=== PATIENT | female | born 1970 | race American Indian/Alaskan Native ===

== ENCOUNTER 2017-04-19 11:52 | Emergency (ER) | payer SELFPAY ==
[2017-04-19 12:51] VITALS: BP 111/76
[2017-04-19] MEDS ORDERED: ZOFRAN ODT PO ONE (14:48)
--- NOTE | 2017-04-19 14:48 | Emergency Department Report ---
ED Headache HPI - General Chief Complaint: Headache Stated Complaint: HEADACHE Time Seen by Provider: 04/19/17 14:01 - History of Present Illness Initial Comments: Patient is a 46-year-old who presents to ED complaining of right-sided throbbing and stabbing headache 1 week. Patient states about a week ago she was moving some objects and was coming down the stairs when she slipped and fell and hit the right side of her head. Patient states she had no loss of consciousness or any significant injuries to her knowledge. Patient states she has then she has had this right-sided throbbing headache with no relief. Patient states she's also had some nausea, vomiting and feelings of fatigue. She admits mild blurred vision in the right side. X-ray she denies dizziness/ fever/chest pain/shortness of breath. Allergies/Adverse Reactions: Allergies No Known Allergies Allergy (Unverified 04/19/17 12:51) Home Medications: Ambulatory Orders Amoxicillin/K Clav Tab [Augmentin 875 mg] 1 tab PO Q12HR #14 tab 04/19/17 Ibuprofen [Motrin] 600 mg PO Q8H PRN #30 tablet 04/19/17 Ondansetron [Zofran ODT TAB] 8 mg PO TID #20 tab.rapdis 04/19/17 ED Review of Systems ROS: Stated complaint: HEADACHE Other details as noted in HPI Constitutional: denies: chills, fever Eyes: denies: eye pain, eye discharge, vision change ENT: denies: ear pain, throat pain Respiratory: denies: cough, shortness of breath, wheezing Cardiovascular: denies: chest pain, palpitations Endocrine: no symptoms reported Gastrointestinal: denies: abdominal pain, nausea, diarrhea Genitourinary: denies: urgency, dysuria, discharge Musculoskeletal: denies: back pain, joint swelling, arthralgia Skin: denies: rash, lesions Neurological: denies: headache, weakness, paresthesias Psychiatric: denies: anxiety, depression Hematological/Lymphatic: denies: easy bleeding, easy bruising ED Past Medical Hx - Past Medical History Previous Medical History?: No Additional medical history: anemia, anxiety, herpes - Social History Smoking Status: Never Smoker - Medications Home Medications: Home Medications Medication Instructions Recorded Confirmed Last Taken Type Amoxicillin/K Clav Tab [Augmentin 1 tab PO Q12HR #14 tab 04/19/17 Unknown Rx 875 mg] Ibuprofen [Motrin] 600 mg PO Q8H PRN #30 tablet 04/19/17 Unknown Rx Ondansetron [Zofran ODT TAB] 8 mg PO TID #20 tab.rapdis 04/19/17 Unknown Rx ED Physical Exam - General Limitations: No Limitations General appearance: alert, in no apparent distress - Head Head exam: Present: atraumatic, normocephalic - Eye Eye exam: Present: normal appearance, PERRL, EOMI - ENT ENT exam: Present: normal exam, mucous membranes moist - Neck Neck exam: Present: normal inspection, full ROM. Absent: tenderness, lymphadenopathy - Respiratory Respiratory exam: Present: normal lung sounds bilaterally. Absent: respiratory distress, wheezes, rales, rhonchi - Cardiovascular Cardiovascular Exam: Present: regular rate, normal rhythm. Absent: systolic murmur, diastolic murmur, rubs, gallop - GI/Abdominal GI/Abdominal exam: Present: soft, normal bowel sounds - Extremities Exam Extremities exam: Present: normal inspection - Back Exam Back exam: Present: normal inspection - Neurological Exam Neurological exam: Present: alert, oriented X3, CN II-XII intact, normal gait - Expanded Neurological Exam Expanded Patient oriented to: Present: person, place, time Speech: Present: fluid speech Cranial nerves: EOM's Intact: Normal, Facial Sensation: Normal Cerebellar function: Finger to Nose: Normal Sensory exam: Upper Extremity Light Touch: Normal, Lower Extremity Temperature: Normal Motor strength exam: RUE: 5, LUE: 5, RLE: 5, LLE: 5 DTR: knee (R): 2+, knee (L): 2+ Best Eye Response ([place]): (4) open spontaneously Best Motor Response (Abhishek): (6) obeys commands Best Verbal Response ([place]): (5) oriented [place] Total: 15 - Psychiatric Psychiatric exam: Present: normal affect, normal mood - Skin Skin exam: Present: warm, dry, intact, normal color. Absent: rash ED Course Vital Signs 04/19/17 04/19/17 04/19/17 12:43 16:37 16:40 Temperature 98 F Pulse Rate 77 Respiratory 16 18 18 Rate Blood Pressure 111/76 Blood Pressure 111/76 [Left] O2 Sat by Pulse 100 98 Oximetry ED Medical Decision Making - Radiology Data Radiology results: report reviewed, image reviewed istory: Fall hit head. Nausea vomiting. Findings: Ventricles are normal in size and midline in location. No evidence of acute ischemia, hemorrhage or mass. No extra axial fluid collection. Normal brainstem and cerebellum. Retention cyst or polyp measuring 1.3 cm in diameter right maxillary sinus medial wall. Impression: No acute intracranial abnormality. Retention cyst or polyp right maxillary sinus. Transcribed By: PTP Dictated By: ROHITH ACEVEDO MD Electronically Authenticated By: ROHITH ACEVEDO MD Signed Date/Time: 04/19/17 2710 - Medical Decision Making 26-year-old female presents with maxillary sinus cyst ED course: She received Motrin for pain. And Zofran ODT for nausea. CT of the head obtained. CT of the head shows above Discussed findings with patient. Sinus suggestive of sinusitis or sinus infection. Discussed with patient to take medications as prescribed. Discussed with patient to follow up with family care physician or ENT as referred Vital signs are normal patient is in no acute distress she reports feeling better after being medicated/ She had no neurological deficit Critical care attestation.: If time is entered above; I have spent that time in minutes in the direct care of this critically ill patient, excluding procedure time. ED Disposition Clinical Impression: Cyst of maxillary sinus, Fall (on) (from) other stairs and steps, initial encounter Sinusitis, acute maxillary Qualifiers: Recurrence: non-recurrent Qualified Code(s): J01.00 - Acute maxillary sinusitis , unspecified Disposition: DC- TO HOME OR SELFCARE Is pt being admited?: No Does the pt Need Aspirin: No Condition: Stable Instructions: Sinusitis (ED), Acute Headache (ED) Prescriptions: Amoxicillin/K Clav Tab [Augmentin 875 mg] 1 tab PO Q12HR #14 tab Ibuprofen [Motrin] 600 mg PO Q8H PRN #30 tablet PRN Reason: Pain Ondansetron [Zofran ODT TAB] 8 mg PO TID #20 tab.rapdis Referrals: PRIMARY CARE, [Primary Care Provider] - 3-5 Days HIRO NORTH MD [Staff Physician] - 3-5 Days DANIE RAMSAY MD [Staff Physician] - 3-5 Days Forms: Accompanied Note, Work/School Release Form(ED) Time of Disposition: 16:09
--- NOTE | 2017-04-19 15:44 | Cat Scan Report ---
CT scan of head without IV contrast: History: Fall hit head. Nausea vomiting. Findings: Ventricles are normal in size and midline in location. No evidence of acute ischemia, hemorrhage or mass. No extra axial fluid collection. Normal brainstem and cerebellum. Retention cyst or polyp measuring 1.3 cm in diameter right maxillary sinus medial wall. Impression: No acute intracranial abnormality. Retention cyst or polyp right maxillary sinus.
[2017-04-19] MEDS ORDERED: MOTRIN PO ONE (16:20)
[2017-04-19] MEDS ORDERED: MOTRIN ONE (16:23)
== END 2017-04-19 16:43 | disposition home or self-care (01) ==
LOC: ED 11:52
DX: J01.00 Acute maxillary sinusitis, unspecified (principal); F41.9 Anxiety disorder, unspecified; D64.9 Anemia, unspecified; M27.40 Unspecified cyst of jaw; W10.8XXA Fall (on) (from) other stairs and steps, initial encounter; Y93.89 Activity, other specified; Y92.89 Other specified places as the place of occurrence of the external cause; Y99.8 Other external cause status
CPT/HCPCS: 70450; Q0162

== ENCOUNTER 2018-01-24 13:32 | Emergency (ER) | payer OTHER ==
[2018-01-24 14:25] VITALS: BP 107/56
[2018-01-24] MEDS ORDERED: NORCO 7.5/325 PO ONE (15:52)
[2018-01-24] MEDS ORDERED: XYLOCAINE 2% INFILTRATI ONE (15:52)
[2018-01-24] MEDS ORDERED: BOOSTRIX IM ONE (15:52)
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
[2018-01-24] MEDS ORDERED: NACL 0.9% 500 ML IR ONE (16:28)
[2018-01-24] MEDS ORDERED: NACL 0.9% 500 ML IRRIGATION ONE (17:00)
--- NOTE | 2018-01-24 17:07 | Emergency Department Report ---
Blank Doc - Documentation Documentation: I assisted with laceration repair. Patient provided verbal consent for infraorbital right-sided nerve block. I explained the risks alternatives benefits. She received 5 mlof 1% lidocaine without epinephrine. I inserted a 26-gauge needle attached to a 5 mL syringe through the mucosa at the right upper lateral incisor and cuspid. I injected the lidocaine just adjacent to the foramen of the inferior orbital nerve bundle. Adequate regional anesthesia was achieved. I gave bedside instruction for wound repair. I assisted with complex two layer closure.
== END 2018-01-24 18:06 | disposition home or self-care (01) ==
LOC: ED 13:32
DX: S01.81XA Laceration without foreign body of other part of head, initial encounter (principal); S61.411A Laceration without foreign body of right hand, initial encounter; W26.0XXA Contact with knife, initial encounter; Y93.89 Activity, other specified; Y92.89 Other specified places as the place of occurrence of the external cause; Y99.8 Other external cause status
CPT/HCPCS: 90471; 90715; 99282

== ENCOUNTER 2018-02-02 10:42 | Emergency (ER) | payer SELFPAY ==
[2018-02-02 11:09] VITALS: BP 100/50
--- NOTE | 2018-02-02 12:28 | Emergency Department Report ---
Suture/Staple Removal - HPI Chief Complaint: Laceration/Recheck/Suture Stated Complaint: WOUND CHECK Time Seen by Provider: 02/02/18 12:16 When Sutures or Wendi Placed: 8-10 Days Ago Wound Location: here for suture removal of stitches that were placed on the R face ED Review of Systems ROS: Stated complaint: WOUND CHECK Other details as noted in HPI Comment: All other systems reviewed and negative ED Past Medical Hx - Past Medical History Previous Medical History?: Yes Additional medical history: anemia, anxiety, herpes - Surgical History Past Surgical History?: No - Social History Smoking Status: Never Smoker Substance Use Type: None - Medications Home Medications: Home Medications Medication Instructions Recorded Confirmed Last Taken Type Amoxicillin/K Clav Tab [Augmentin 1 tab PO Q12HR #14 tab 04/19/17 Unknown Rx 875 mg] Ibuprofen [Motrin] 600 mg PO Q8H PRN #30 tablet 04/19/17 Unknown Rx Ondansetron [Zofran ODT TAB] 8 mg PO TID #20 tab.rapdis 04/19/17 Unknown Rx Acetaminophen/Codeine [Tylenol 1 tab PO Q6H PRN #14 tab 01/24/18 Unknown Rx /Codeine # 3 tab] Ibuprofen [Motrin] 600 mg PO Q8H PRN #30 tablet 01/24/18 Unknown Rx Sulfamethoxazole/Trimethoprim 1 each PO BID #14 tablet 01/24/18 Unknown Rx [Bactrim DS TAB] Suture Removal Exam - Exam General: Vital signs noted. No distress. Alert and acting appropriately. Wound: No Pathologic Erythema, No Tenderness, No Drainage, No Pus, No Wound Dehiscence Other Systems: All other systems reviewed and are unremarkable. Sutures are in place and the wound is clean dry and well-healed ED Course Vital Signs 02/02/18 11:05 Temperature 98.4 F Pulse Rate 98 H Respiratory 18 Rate Blood Pressure 100/50 O2 Sat by Pulse 98 Oximetry ED Recheck MDM - Core Measures AMI Core Measures Followed: Yes - Differential Diagnosis Wound Recheck - Medical Decision Making Sutures were removed by nursing staff Critical care attestation.: If time is entered above; I have spent that time in minutes in the direct care of this critically ill patient, excluding procedure time. ED Disposition Clinical Impression: Visit for suture removal Disposition: DC-01 TO HOME OR SELFCARE Is pt being admited?: No Does the pt Need Aspirin: No Condition: Stable Additional Instructions: Please by Maderma [id number] to help reduce scar Referrals: PRIMARY CARE, [Primary Care Provider] - 3-5 Days
== END 2018-02-02 13:12 | disposition home or self-care (01) ==
LOC: ED 10:42
DX: S01.81XD Laceration without foreign body of other part of head, subsequent encounter (principal); D64.9 Anemia, unspecified; F41.9 Anxiety disorder, unspecified; X58.XXXD Exposure to other specified factors, subsequent encounter

== ENCOUNTER 2019-05-29 08:52 | Outpatient (CLI) | payer OTHER ==
--- NOTE | 2019-05-29 10:49 | Mammography Report ---
BILATERAL DIGITAL DIAGNOSTIC MAMMOGRAM WITH CAD -- 05/29/2019 BILATERAL LIMITED BREAST ULTRASOUND INDICATION: Left palpable breast lump. TECHNIQUE: Digital bilateral mammographic imaging was performed. Limited ultrasound was performed. T his examination was interpreted with the benefit of Computer-Aided Detection (CAD) analysis. COMPARISON: 08/08/2014 and 07/03/2014 FINDINGS: Breast Density: The breasts are heterogeneously dense, which may obscure small masses. MAMMOGRAPHIC FINDINGS: An oval circumscribed left inner mass is located approximately 4 cm from the n ipple and measures 4.9 cm maximum. An oval partially circumscribed right upper outer mass approximate ly 10 cm from the nipple measures approximately 3.5 cm. ULTRASOUND FINDINGS: Targeted ultrasound evaluation was performed of the area of interest. Ultrasou nd of the right breast demonstrated an oval anechoic benign cyst at 10:30 o'clock 10 cm from the nipp le measuring 2.5 x 2.0 x 1.2 cm. It correlates with the mammographic mass. A benign cyst with a lobul ar shape at 11:00 10 cm from the nipple measures 7 x 7 x 6 mm. Ultrasound of the left breast demonstr ated an oval cyst with low-level internal echoes at 9:00 at the edge of the areola. It measures 3.6 x 2.9 x 3.3 cm and contains low-level internal echoes as well as a 3.3 mm irregular mural nodule. This complex cyst correlates with the palpable mammographic mass of the left breast. IMPRESSION: 1. A suspicious 3.6 cm palpable complex cyst of the left breast at 9:00. Recommend ultrasound-guided vacuum-assisted needle core biopsy. 2. Benign right breast cysts at 10:30 o'clock and 11:00 10 cm from the nipple. I discussed the findings and the recommendation for ultrasound-guided needle biopsy of the left breas t with the patient at the time of the exam. Follow up recommendation: Biopsy BI-RADS Category 4: Suspicious for Malignancy. A "normal" or negative report should not discourage follow up or biopsy of a clinically significant f inding. A written summary of these findings will be mailed to the patient. The patient will be entered into a mammography reporting system which will generate a reminder letter for the patient's next appointmen t at the appropriate interval. According to the [employer], yearly mammograms are recommended starting at age 40 and continuing as long as a woman is in good health. Breast MRI is recommended for women with an sita roximately 20-25% or greater lifetime risk of breast cancer, including women with a strong family his tory of breast or ovarian cancer and women who have been treated for Hodgkin's disease. Signer Name: Costa Chacko MD Signed: 05/29/2019 10:44 AM Workstation Name: [id number]
== END 2019-05-29 08:53 | disposition home or self-care (01) ==
LOC: MAMMO 08:52
PROVIDERS: ATTEND Physician Assistant
DX: N60.02 Solitary cyst of left breast (principal)
CPT/HCPCS: 77066

== ENCOUNTER 2019-06-13 12:49 | Outpatient (CLI) | payer OTHER ==
--- NOTE | 2019-06-13 15:33 | Ultrasound Report ---
ULTRASOUND-GUIDED VACUUM-ASSISTED NEEDLE CORE BIOPSY LEFT BREAST WITH CLIP PLACEMENT CLINICAL: A complex cystic mass of the left breast. COMPARISON: 05/29/2019 FINDINGS: The procedure was explained to the patient and informed consent was obtained. Ultrasound demonstrated the previously identified mobile complex cyst at 6:00. This cyst contains low -level echoes and an irregular echogenic dependent nodule measuring 6 mm.. I marked the breast with a felt tip marker and a timeout was called. The skin was prepped with Chloro -Prep and anesthetized with 1% lidocaine. Vacuum-assisted needle core biopsy was performed through tiny dermatotomy using ultrasound guidance, 2% lidocaine with epinephrine for deep anesthesia and a 13-gauge Mammotome Elite biopsy device. The l esion showed complete collapse with no apparent solid component remaining. Echoes within the lesion d ispersed. Tarsha clear fluid was aspirated with the biopsy device. 2 localizer clips were placed. A U- shaped marker is clearly within the collapsed wall of the cyst. A HIDA prem clip was placed where the re remain some echogenic material. The patient tolerated the procedure well and there were no apparen t complications. Hemostasis was achieved with minimal effort and a sterile dressing was applied. A post procedure mammogram demonstrated complete disappearance of the lesion and concordant clip depl oyment. She left the department in good condition and was given instructions for wound care and follo w-up. IMPRESSION: Uncomplicated vacuum-assisted ultrasound guided needle core biopsy with clip placement le ft breast. Signer Name: Costa Chacko MD Signed: 06/13/2019 3:29 PM Workstation Name: [id number]
--- NOTE | 2019-06-13 15:48 | Mammography Report ---
LEFT DIGITAL DIAGNOSTIC MAMMOGRAM CLINICAL: For clip placement after vacuum-assisted ultrasound-guided needle biopsy. COMPARISON: 05/29/2019 FINDINGS: 2 biopsy clips are now identified in the inner breast. The previous mammographic lesion has disappeared. IMPRESSION: Concordant clip deployment and complete disappearance of the mammographic mass with biops y. Signer Name: Costa Chacko MD Signed: 06/13/2019 3:43 PM Workstation Name: [id number]
== END 2019-06-13 12:50 | disposition home or self-care (01) ==
LOC: SPVWC 12:49
PROVIDERS: ATTEND Family Medicine
DX: N63.20 Unspecified lump in the left breast, unspecified quadrant (principal); N64.89 Other specified disorders of breast; Z79.899 Other long term (current) drug therapy
CPT/HCPCS: 88305

== ENCOUNTER 2019-10-17 15:54 | Outpatient (CLI) | payer OTHER ==
--- NOTE | 2019-10-17 16:37 | Ultrasound Report ---
ULTRASOUND THYROID INDICATION / CLINICAL INFORMATION: THYROID NODULE. COMPARISON: None available. FINDINGS: RIGHT LOBE: Size = 1.9 x 4.8 x 2.1 cm. - Echogenicity: Normal. - Vascularity: Normal. - Nodules < 1 cm: None. - Nodules >= 1 cm or Suspicious Nodules: None. LEFT LOBE: Size = 2.4 x 4.8 x 1.5 cm. - Echogenicity: Normal. - Vascularity: Normal. - Nodules < 1 cm: 1 - Nodules >= 1 cm or Suspicious Nodules: None. ISTHMUS: No significant abnormality. Thickness = 0.7 cm. - Nodules < 1 cm: None. - Nodules >= 1 cm or Suspicious Nodules: None. There is a 2.8 x 1 x 1 cm solid-appearing hypoechoic nodule which is wider than tall with lobulated m argins. No evidence of calcifications. This would equate to a TIRADS score of 6 and classification of TR 4. LYMPH NODES: No abnormal lymph nodes. PARATHYROID GLANDS: No abnormal parathyroid gland. ADDITIONAL FINDINGS: None. IMPRESSION: There is a 2.8 cm solid-appearing hypoechoic nodule within the left thyroid. This is moderately suspi cious and needs criteria for ultrasound-guided fine-needle aspiration. ACR TI-RADS Thyroid Nodule Recommendations TI-RADS 1 (0 points) -- Benign. No FNA or follow-up. TI-RADS 2 (1-2 points) -- Not suspicious. No FNA or follow-up. TI-RADS 3 (3 points) -- Mildly suspicious. Follow up in 1 year if 1.5 cm. FNA if 2.5 cm. TI-RADS 4 (4-6 points) -- Moderately suspicious. Follow up in 1 year if 1.0 cm. FNA if 1.5 cm. TI-RADS 5 (7+ points) -- Highly suspicious. Follow up in 1 year if 0.5 cm. FNA if 1.0 cm. Signer Name: Varinder Tate MD Signed: 10/17/2019 4:32 PM Workstation Name: [id number]
== END 2019-10-17 15:55 | disposition home or self-care (01) ==
LOC: SPVWC 15:54
PROVIDERS: ATTEND Family Medicine
DX: E04.1 Nontoxic single thyroid nodule (principal)
CPT/HCPCS: 76536